=== PATIENT | female | born 1980 | race Caucasian/White ===

== ENCOUNTER → 2021-03-16 14:03 | Outpatient (BNVA) | payer BC, SELFPAY | PROVIDERS: PCP Family Medicine; Visit Provider Nurse Practitioner Women's Health | DX: Z01.419 Encounter for gynecological examination (general) (routine) without abnormal findings (principal); N39.3 Stress incontinence (female) (male) | CPT/HCPCS: 87624 ==

== ENCOUNTER 2021-04-06 06:00 | Outpatient (RCR) | payer BC, SELFPAY | END 2021-05-03 23:59 | disposition home or self-care (01) | LOC: SPT 06:00 | PROVIDERS: PCP Family Medicine; Referring Provider Nurse Practitioner Women's Health; Visit Provider Nurse Practitioner Women's Health | DX: N39.3 Stress incontinence (female) (male) (principal); N94.10 Unspecified dyspareunia | CPT/HCPCS: 97110; 97161; 97530 ==

== ENCOUNTER 2021-04-08 12:54 | Outpatient (CLI) | payer BC, SELFPAY ==
--- NOTE | 2021-04-08 12:45 | USCV_ITS ---
Vicki Awan Age: 40 Gender: F : 1980 Exam Date: 04/08/2021 13:16 Ordering Phys: Maria Esther Johnson MD ([email or web address]) Technologist: Steve Killian Exam Location: [facility] – [place] Indication: Non compaction syndrome, Epsteins anomoly BP: 114 / 72 HR: Rhythm: Other Technical Quality: Good MEASUREMENTS (Male / Female) Normal Values 2D ECHO LVOT Diameter 2.0 cm LA Diameter 3.0 cm LA Width 3.7 cm LA Height 4.0 cm RA Width 4.5 cm RA Height 4.2 cm Aorta at Sinotubular Diameter 2.2 cm M-MODE MV E Point Septal Separation 1.1 cm DOPPLER MV Area PHT 5.0 cm squared Mitral E to A Ratio 1.1 MV E' Velocity 40.0 cm/s Mitral E to MV E' Ratio 6.8 Mitral E to LV E' Lateral Ratio 5.2 Mitral E to LV E' Septal Ratio 9.9 TR Peak Velocity 244.0 cm/s TR Peak Gradient 23.8 mmHg Right Atrial Pressure 3.0 mmHg Pulmonary Artery Systolic Pressu 26.8 mmHg FINDINGS Left Ventricle Normal left ventricular cavity size. Severely decreased left ventricular systolic function. Left ventricular ejection fraction is estimated at 35 %.global left ventricular hypokinesis. There appeared to be septal bounce which could be secondary to interventricular conduction delay are postoperative state. Grade I/IV diastolic dysfunction (abnormal relaxation filling pattern), normal to mildly elevated filling pressures. Right Ventricle The right ventricle is normal in size and function. Right Atrium The right atrium is normal in size. Left Atrium The left atrium is normal in size. Mitral Valve Moderately thickened mitral valve. No mitral valve stenosis. Mild mitral valve regurgitation. Aortic Valve Moderate aortic valve calcification. No aortic valve stenosis. Trace aortic valve regurgitation. Tricuspid Valve Thickened tricuspid valve. . Mild tricuspid valve regurgitation. Pulmonic Valve Structurally normal pulmonic valve without significant stenosis. There is no pulmonic regurgitation. Pericardium Normal pericardium without effusion. Aorta Normal ascending aorta dimension. CONCLUSIONS 1-Normal left ventricular cavity size. Severely decreased left ventricular systolic function. Left ventricular ejection fraction is estimated at 35 %.global left ventricular hypokinesis. There appeared to be septal bounce which could be secondary to interventricular conduction delay are postoperative state. Grade I/IV diastolic dysfunction (abnormal relaxation filling pattern), normal to mildly elevated filling pressures. 2-Moderately thickened mitral valve. No mitral valve stenosis. Mild mitral valve regurgitation. 3-Moderate aortic valve calcification. No aortic valve stenosis. Trace aortic valve regurgitation. 4-Thickened tricuspid valve. . Mild tricuspid valve regurgitation. 5-There is no pericardial effusion. 6-Pulmonary artery systolic pressure is within normal limits. 7-Right atrial pressure is around 5 mm of mercury. 8-There are no prior echocardiogram studies to compare. Maria Esther Johnson MD (Electronically Signed) Final Date: 17 April 2021 20:33 S
== END 2021-04-08 12:55 | disposition home or self-care (01) ==
PROVIDERS: PCP Family Medicine; Visit Provider Internal Medicine Cardiovascular Disease
DX: R06.02 Shortness of breath (principal); R07.9 Chest pain, unspecified; I08.3 Combined rheumatic disorders of mitral, aortic and tricuspid valves
CPT/HCPCS: 93306

== ENCOUNTER 2021-05-04 06:00 | Outpatient (RCR) | payer BC, SELFPAY | END 2021-05-04 23:59 | disposition home or self-care (01) | LOC: SPT 06:00 | PROVIDERS: PCP Family Medicine; Referring Provider Nurse Practitioner Women's Health; Visit Provider Nurse Practitioner Women's Health | DX: N39.3 Stress incontinence (female) (male) (principal); N94.10 Unspecified dyspareunia | CPT/HCPCS: 97110; 97112; 97530 ==

== ENCOUNTER 2021-08-01 11:09 | Outpatient (CLI) | payer OTHER, SELFPAY ==
[2021-08-01 12:09] LABS: INR 1.16 (0.8-1.2)
== END 2021-08-01 11:10 | disposition home or self-care (01) ==
PROVIDERS: PCP Family Medicine; Visit Provider Internal Medicine
DX: I48.0 Paroxysmal atrial fibrillation (principal)
CPT/HCPCS: 85610